=== PATIENT | male | born 1975 | race Caucasian/White ===

== ENCOUNTER 2020-10-17 13:01 | Emergency (ER) | payer MEDICAID ==
[~2020-10-17] VITALS: Ht 177.8 cm; Wt 84.4 kg
[2020-10-17 13:03] VITALS: BP 109/69; Ht 177.8 cm; Wt 84.4 kg
== END 2020-10-17 13:46 | disposition home or self-care (01) ==
LOC: ED 13:01
DX: U07.1 COVID-19 (principal)
CPT/HCPCS: U0003